=== PATIENT | female | born 1960 | race Caucasian/White ===

== ENCOUNTER 2023-05-25 13:00 | Outpatient (OUT) | payer MEDICARE, MEDICAID, SELFPAY ==
--- NOTE | 2023-05-25 13:05 | VEIN_ITS ---
The [address] [address] Patient Name: ANDREW SHARMA MRN: [id number] date: 1960 Sex: F Assigned Patient Location: Current Patient Location: Accession/Order Number: [id number] Exam Date: 05/25/2023 13:05 Report Date: 05/27/2023 13:16 At the request of: NABILA FERGUSON Procedure: VC AV Fistula Study EXAM: VC AV Fistula Study HISTORY: Peripheral arterial disease, AV fistula for renal dialysis COMPARISON: None. TECHNIQUE: Grayscale, color Doppler, spectral Doppler waveform analysis was used to evaluate a left upper extremity AV fistula. Digital waveforms were also obtained. FINDINGS: The AV fistula is widely patent. No thrombus is seen. No significant velocity elevations were seen to suggest a significant stenosis. The left small and ring finger waveforms were almost completely flat. With compression there is incomplete increased amplitude of the digital waveforms. VEIN/VC AV Fistula Study IMPRESSION: 1. Possible steal phenomenon primarily involving the small and ring fingers as evidenced by improvement in the waveform amplitude with fistula compression. 2. No hemodynamically significant stenosis within the AV fistula. Electronically authenticated by: KENNEDI SHULTZ Date: 05/27/2023 13:16
== END 2023-05-25 13:01 | disposition home or self-care (01) ==
LOC: US 13:00
PROVIDERS: Family Provider Internal Medicine; PCP Student in an Organized Health Care Education/Training Program; Visit Provider Student in an Organized Health Care Education/Training Program
DX: I73.9 Peripheral vascular disease, unspecified (principal); Z99.2 Dependence on renal dialysis
CPT/HCPCS: 93990

== ENCOUNTER 2023-07-05 11:09 | Outpatient (OUT) | payer MEDICARE, MEDICAID, SELFPAY ==
--- NOTE | 2023-07-05 | XR_ITS ---
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 Fracture margins are corticated. There is apex lateral angulation of 40 degrees. Distraction of bone fragments up to 1.5 cm. SOFT TISSUES:Negative. No visible soft tissue swelling. EFFUSION:None visible. OTHER: Negative. 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
== END 2023-07-05 11:10 | disposition home or self-care (01) ==
LOC: EC 11:09
PROVIDERS: Family Provider Internal Medicine; PCP Student in an Organized Health Care Education/Training Program; Visit Provider Orthopaedic Surgery
DX: M89.8X2 Other specified disorders of bone, upper arm (principal); S42.332K Displaced oblique fracture of shaft of humerus, left arm, subsequent encounter for fracture with nonunion
CPT/HCPCS: 73060